=== PATIENT | female | born 1995 | race Caucasian/White ===

== ENCOUNTER 2016-06-30 20:04 | Emergency (ER) | payer OTHER ==
[2016-06-30 21:13] LABS: BASOPHIL % 0.6 % (0-2); PLATELET COUNT 287 x10^3mcL (130-400); RED CELL DISTRIBUTION WIDTH 13.3 % (11.5-14.5)
[2016-06-30 21:26] LABS: CALCIUM 9.5 mg/dL (8.5-10.1); CARBON DIOXIDE 28.5 mmol/L (21-32); CHLORIDE SERUM 105 mmol/L (98-107); CREATININE SERUM 0.8 mg/dL (0.6-1.0); GFR1 > 60 mL/min; GLUCOSE SERUM 74 mg/dL (74-106); POTASSIUM SERUM 3.7 mmol/L (3.5-5.1); SODIUM SERUM 142 mmol/L (136-145)
[2016-06-30 21:41] LABS: ALBUMIN 4.3 g/dL (3.4-5.0); ALKALINE PHOSPHATASE 90 U/L (46-116); ALT/SGPT 30 U/L (14-59); AST/SGOT 8 U/L (15-37); BILIRUBIN TOTAL 0.3 mg/dL (0.20-1.00); TOTAL PROTEIN, SERUM 8.1 g/dL (6.4-8.2)
[2016-06-30 23:28] VITALS: BP 118/58
== END 2016-06-30 23:28 | disposition home or self-care (01) ==
LOC: ED 20:04
PROVIDERS: Emergency Medicine
DX: R42 Dizziness and giddiness (principal)

== ENCOUNTER 2016-08-08 15:47 | Emergency (ER) | payer OTHER ==
[~2016-08-08] VITALS: Ht 165.1 cm; Wt 61.9 kg
[2016-08-08 16:28] LABS: BASOPHIL % 0.1 % (0-2); PLATELET COUNT 264 x10^3mcL (130-400); RED CELL DISTRIBUTION WIDTH 13.1 % (11.5-14.5)
[2016-08-08 16:31] LABS: urine erythrocyte NEGATIVE (NEGATIVE)
[2016-08-08 16:37] LABS: CALCIUM 9.3 mg/dL (8.5-10.1); CARBON DIOXIDE 26.9 mmol/L (21-32); CHLORIDE SERUM 101 mmol/L (98-107); CREATININE SERUM 0.9 mg/dL (0.6-1.0); GFR1 > 60 mL/min; GLUCOSE SERUM 100 mg/dL (74-106); POTASSIUM SERUM 3.6 mmol/L (3.5-5.1); SODIUM SERUM 139 mmol/L (136-145)
[2016-08-08 16:38] LABS: microscopic required? YES
[2016-08-08 16:41] LABS: ALBUMIN 4.1 g/dL (3.4-5.0); ALKALINE PHOSPHATASE 68 U/L (46-116); ALT/SGPT 23 U/L (14-59); AMYLASE 54 U/L (25-115); AST/SGOT 15 U/L (15-37); BILIRUBIN TOTAL 0.76 mg/dL (0.20-1.00); LIPASE 120 IU/L (73-393); TOTAL PROTEIN, SERUM 7.8 g/dL (6.4-8.2)
[2016-08-08 16:41] LABS: AMPHETAMINE QUAL UR NONE DETECTED (NEG <=1000)
[2016-08-08 18:35] VITALS: BP 112/72
== END 2016-08-08 18:35 | disposition home or self-care (01) ==
LOC: ED 15:47
PROVIDERS: Emergency Medicine
DX: R11.2 Nausea with vomiting, unspecified (principal)
CPT/HCPCS: J2405; J3490; J7030

== ENCOUNTER 2016-10-19 16:40 | Emergency (ER) | payer OTHER ==
[2016-10-19 19:57] VITALS: BP 127/76
== END 2016-10-19 20:52 | disposition home or self-care (01) ==
LOC: ED 16:40
DX: K13.0 Diseases of lips (principal)

== ENCOUNTER 2016-12-11 10:08 | Emergency (ER) | payer OTHER ==
[~2016-12-11] VITALS: Ht 162.6 cm; Wt 61.8 kg
[2016-12-11 11:04] LABS: BASOPHIL % 0.3 % (0-2); PLATELET COUNT 313 x10^3mcL (130-400); RED CELL DISTRIBUTION WIDTH 13.3 % (11.5-14.5)
[2016-12-11 11:43] LABS: CALCIUM 9.8 mg/dL (8.5-10.1); CARBON DIOXIDE 26.2 mmol/L (21-32); CHLORIDE SERUM 105 mmol/L (98-107); CREATININE SERUM 0.8 mg/dL (0.6-1.0); GFR1 > 60 mL/min; GLUCOSE SERUM 74 mg/dL (74-106); POTASSIUM SERUM 3.9 mmol/L (3.5-5.1); SODIUM SERUM 140 mmol/L (136-145)
[2016-12-11 11:49] LABS: ALBUMIN 4.4 g/dL (3.4-5.0); ALKALINE PHOSPHATASE 79 U/L (46-116); ALT/SGPT 28 U/L (14-59); AST/SGOT 12 U/L (15-37); BILIRUBIN TOTAL 0.4 mg/dL (0.20-1.00); CHOLESTEROL 148 mg/dL (<200)
[2016-12-11 11:52] LABS: TOTAL PROTEIN, SERUM 8.5 g/dL (6.4-8.2)
[2016-12-11 13:08] VITALS: BP 110/72
== END 2016-12-11 13:08 | disposition home or self-care (01) ==
LOC: ED 10:08
PROVIDERS: Specialist
DX: R20.2 Paresthesia of skin (principal); R51 Headache
CPT/HCPCS: 36415; 83880; G0480; Q0092

== ENCOUNTER 2017-02-05 18:47 | Emergency (ER) | payer OTHER ==
[2017-02-05 22:19] LABS: UA SPECIFIC GRAVITY 1.025 (1.005-1.035); microscopic required? YES; urine erythrocyte NEGATIVE (NEGATIVE)
[2017-02-05 23:13] VITALS: BP 118/89
== END 2017-02-05 23:13 | disposition home or self-care (01) ==
LOC: ED 18:47
PROVIDERS: Emergency Medicine
DX: K21.9 Gastro-esophageal reflux disease without esophagitis (principal); N39.0 Urinary tract infection, site not specified
CPT/HCPCS: Q0162

== ENCOUNTER 2017-04-01 20:17 | Emergency (ER) | payer OTHER ==
[~2017-04-01] VITALS: Ht 165.1 cm; Wt 61.7 kg
[2017-04-01 20:29] VITALS: Ht 165.1 cm; Wt 61.7 kg
[2017-04-01 22:05] LABS: AMPHETAMINE QUAL UR NONE DETECTED (NEG <=1000)
[2017-04-01 22:40] VITALS: BP 121/76
== END 2017-04-01 22:40 | disposition home or self-care (01) ==
LOC: ED 20:17
PROVIDERS: Emergency Medicine
DX: R10.9 Unspecified abdominal pain (principal); R11.10 Vomiting, unspecified; K08.89 Other specified disorders of teeth and supporting structures
CPT/HCPCS: Q0162

== ENCOUNTER 2017-08-13 07:49 | Emergency (ER) | payer OTHER ==
[~2017-08-13] VITALS: Ht 162.6 cm; Wt 62.2 kg
[2017-08-13 07:52] VITALS: Ht 162.6 cm; Wt 62.2 kg
[2017-08-13 08:36] VITALS: BP 116/72
== END 2017-08-13 08:36 | disposition home or self-care (01) ==
LOC: ED 07:49
DX: N39.0 Urinary tract infection, site not specified (principal)

== ENCOUNTER 2018-02-25 09:28 | Emergency (ER) | payer OTHER ==
[~2018-02-25] VITALS: Ht 167.6 cm; Wt 67.6 kg
[2018-02-25 09:40] VITALS: BP 133/75; Ht 167.6 cm; Wt 67.6 kg
== END 2018-02-25 10:41 | disposition home or self-care (01) ==
LOC: ED 09:28
DX: S31.41XA Laceration without foreign body of vagina and vulva, initial encounter (principal); F41.9 Anxiety disorder, unspecified; X58.XXXA Exposure to other specified factors, initial encounter; Y93.89 Activity, other specified; Y92.89 Other specified places as the place of occurrence of the external cause; Y99.8 Other external cause status

== ENCOUNTER 2018-04-23 16:28 | Emergency (ER) | payer OTHER ==
[~2018-04-23] VITALS: Ht 167.6 cm; Wt 69.9 kg
[2018-04-23 17:02] VITALS: Ht 167.6 cm; Wt 69.9 kg
[2018-04-23 17:45] LABS: PLATELET COUNT 301 x10^3mcL (130-400); RED CELL DISTRIBUTION WIDTH 12.9 % (11.5-14.5)
[2018-04-23 18:02] LABS: CALCIUM 9.3 mg/dL (8.5-10.1); CARBON DIOXIDE 26.7 mmol/L (21-32); CHLORIDE SERUM 104 mmol/L (98-107); CREATININE SERUM 0.7 mg/dL (0.6-1.0); GFR1 > 60 mL/min; GLUCOSE SERUM 97 mg/dL (74-106); POTASSIUM SERUM 3.8 mmol/L (3.5-5.1); SODIUM SERUM 141 mmol/L (136-145)
[2018-04-23 18:08] LABS: ALBUMIN 4.1 g/dL (3.4-5.0); ALKALINE PHOSPHATASE 84 U/L (46-116); ALT/SGPT 43 U/L (14-59); AST/SGOT 19 U/L (15-37); BILIRUBIN TOTAL 0.19 mg/dL (0.20-1.00)
[2018-04-23 18:11] LABS: TOTAL PROTEIN, SERUM 8.3 g/dL (6.4-8.2)
[2018-04-23 19:02] VITALS: BP 121/70
== END 2018-04-23 19:02 | disposition home or self-care (01) ==
LOC: ED 16:28
PROVIDERS: Emergency Medicine
DX: R42 Dizziness and giddiness (principal); F41.9 Anxiety disorder, unspecified
CPT/HCPCS: 36415

== ENCOUNTER 2019-01-12 13:14 | Emergency (ER) | payer MEDICAID ==
[~2019-01-12] VITALS: Ht 167.6 cm; Wt 75.3 kg
[2019-01-12 13:29] VITALS: Ht 167.6 cm; Wt 75.3 kg
[2019-01-12 16:39] VITALS: BP 112/70
== END 2019-01-12 16:39 | disposition home or self-care (01) ==
LOC: ED 13:14
DX: B34.9 Viral infection, unspecified (principal); F41.9 Anxiety disorder, unspecified

== ENCOUNTER 2019-04-07 18:33 | Emergency (ER) | payer MEDICAID ==
[~2019-04-07] VITALS: Ht 167.6 cm; Wt 78.5 kg
[2019-04-07 19:17] VITALS: Ht 167.6 cm; Wt 78.5 kg
[2019-04-07 20:00] LABS: CARBON DIOXIDE 27.3 mmol/L (21-32); CHLORIDE SERUM 105 mmol/L (98-107); CREATININE SERUM 0.7 mg/dL (0.6-1.0); GFR1 > 60 mL/min; GLUCOSE SERUM 110 mg/dL (74-106); POTASSIUM SERUM 3.9 mmol/L (3.5-5.1); SODIUM SERUM 142 mmol/L (136-145)
[2019-04-07 20:04] LABS: ALKALINE PHOSPHATASE 122 U/L (46-116); ALT/SGPT 65 U/L (14-59); AST/SGOT 15 U/L (15-37); BILIRUBIN TOTAL 0.2 mg/dL (0.20-1.00); LIPASE 179 IU/L (73-393); TOTAL PROTEIN, SERUM 7.9 g/dL (6.4-8.2)
[2019-04-07 20:09] LABS: BASOPHIL % 0.6 % (0-2); PLATELET COUNT 293 x10^3mcL (130-400); RED CELL DISTRIBUTION WIDTH 13.6 % (11.5-14.5)
[2019-04-07 22:27] VITALS: BP 127/77
== END 2019-04-07 22:27 | disposition home or self-care (01) ==
LOC: ED 18:33
PROVIDERS: Emergency Medicine
DX: R10.10 Upper abdominal pain, unspecified (principal); R10.13 Epigastric pain
CPT/HCPCS: 36415

== ENCOUNTER 2019-06-03 22:45 | Emergency (ER) | payer MEDICAID, SELFPAY ==
[~2019-06-03] VITALS: Ht 165.1 cm; Wt 67.1 kg
[2019-06-03 22:46] VITALS: Ht 165.1 cm; Wt 67.1 kg
[2019-06-04 00:22] VITALS: BP 117/78
== END 2019-06-04 00:22 | disposition home or self-care (01) ==
LOC: ED 22:45
DX: R07.89 Other chest pain (principal); F41.9 Anxiety disorder, unspecified
CPT/HCPCS: Q0092

== ENCOUNTER 2020-03-30 19:48 | Emergency (ER) | payer OTHER ==
[~2020-03-30] VITALS: Ht 167.6 cm; Wt 68.9 kg
[2020-03-30 19:59] VITALS: Ht 167.6 cm; Wt 68.9 kg
[2020-03-30 21:02] LABS: BASOPHIL % 0.9 % (0.2-1.3); PLATELET COUNT 349 x10^3mcL (179-408)
[2020-03-30 21:11] LABS: CALCIUM 8.6 mg/dL (8.5-10.1); CARBON DIOXIDE 29.4 mmol/L (21-32); CHLORIDE SERUM 105 mmol/L (98-107); CREATININE SERUM 0.7 mg/dL (0.6-1.0); GFR1 > 60 mL/min; GLUCOSE SERUM 75 mg/dL (74-106); POTASSIUM SERUM 3.7 mmol/L (3.5-5.1); SODIUM SERUM 141 mmol/L (136-145)
[2020-03-30 23:36] VITALS: BP 131/86
== END 2020-03-30 23:36 | disposition home or self-care (01) ==
LOC: ED 19:48
PROVIDERS: Emergency Medicine
DX: N93.8 Other specified abnormal uterine and vaginal bleeding (principal)